=== PATIENT | male | born 1990 | race Caucasian/White ===

== ENCOUNTER → 2019-12-01 | Outpatient (CLI) | payer OTHER ==
[~2019-12-01] VITALS: Ht 177.8 cm; Wt 90.9 kg
[~2019-12-01] MED LIST: GADOBUTROL 7.5 MMOL/7.5 ML (GADAVIST) VIAL IV ONE; IOHEXOL 300 MG/ML 30 ML (OMNIPAQUE 300) VIAL IV ONE; IOHEXOL 300 MG/ML 50 ML (OMNIPAQUE 300) VIAL IV ONE; LIDOCAINE 1% INJ 20 ML 20 ML VIAL INJ ONE; LIDOCAINE 1% INJ 20 ML 20 ML VIAL ONE
--- NOTE | 2019-12-01 15:24 | Diagnostic Imaging Report ---
EXAMINATION: Magnetic resonance imaging of the right shoulder with intra-articular contrast. DATE: December 01, 2019. COMPARISON: Right shoulder arthrogram December 01, 2019. HISTORY: 29-year-old male, right shoulder injury. TECHNIQUE: Magnetic Resonance Imaging sequences were performed of the shoulder following intra-articular administration of contrast. FINDINGS: ROTATOR CUFF, LIGAMENTS, TENDONS, AND MUSCLES: The supraspinatus, infraspinatus, teres minor, and subscapularis tendons and muscles are intact. There is normal rotator cuff muscle bulk and signal. LONG HEAD OF BICEPS: The biceps labral attachment and long head of the biceps tendon is intact. The long head of the biceps tendon is normally positioned within the bicipital groove. GLENOHUMERAL JOINT: The humeral head is well positioned relative to the glenoid. There is contrast undermining the biceps labral attachment extending both anteriorly and posteriorly. The contrast is extending posterior to the biceps labral attachment. There is additional tearing of the posterior lateral labrum extending from approximately the 10 o'clock position of the mid posterior labrum to the level of the inferior labrum near the 6 o'clock position. There is no identified paralabral cyst. The anterior inferior labrum appears intact. The articular cartilage is grossly intact. There is no identified intra-articular body or prominent synovitis. The anterior and posterior bands of the inferior glenohumeral ligament complex appear intact. ACROMIOCLAVICULAR JOINT: The acromioclavicular joint is normally aligned. The coracoclavicular and coracoacromial ligaments are intact. There are no degenerative changes of the acromioclavicular joint. BONE: There is no os acromiale. The bone marrow signal is within normal limits. Specifically, negative for fracture, osteomyelitis, osteonecrosis or marrow replacing process. BURSAE AND SOFT TISSUES: The bursae and soft tissue surrounding the shoulder are unremarkable. IMPRESSION: 1. Superior labral tear with extension both anteriorly and posteriorly to involve the anterosuperior labrum and posterior superior labrum. There is additional tearing of the posterior labrum extending from at least the 10 o'clock position of the posterior labrum above its mid segment to the inferior labrum at approximately the 6 o'clock position. The anterior inferior labrum appears intact. There is no paralabral cyst. 2. Intact articular cartilage. Intact anterior and posterior bands of the inferior glenohumeral ligament complex. 3. No acute fracture or bone contusion. 4. Intact rotator cuff tendons and proximal long head of biceps tendon. 5. Intact acromioclavicular joint. Dictated by: Dictated on workstation # [id number]
--- NOTE | 2019-12-03 09:36 | Diagnostic Imaging Report ---
EXAMINATION: Right shoulder arthrogram INDICATION: Shoulder pain Following aseptic preparation of the skin and administration of local anesthesia a 21-gauge needle was advanced into the glenohumeral joint using fluoroscopic guidance. Subsequently a 14 mL mixture of sodium chloride, Omnipaque 240 and Gadavist was infused. The patient tolerated the procedure well and was sent to the MR suite in good condition. IMPRESSION: There has been a successful injection of the right glenohumeral joint. MRI is pending for further study. Dictated by: Dictated on workstation # [id number]
== END ==
LOC: RAD 10:12
PROVIDERS: ATTEND Nurse Practitioner Family
DX: S43.431A Superior glenoid labrum lesion of right shoulder, initial encounter (principal); X58.XXXA Exposure to other specified factors, initial encounter
CPT/HCPCS: 23350; 73040; 73222

== ENCOUNTER → 2019-12-22 | Outpatient (CLI) | payer OTHER | LOC: LABNPT 09:16 | PROVIDERS: ATTEND Orthopaedic Surgery | DX: Z11.59 Encounter for screening for other viral diseases (principal) ==